=== PATIENT | female | born 1940 | race Caucasian/White ===

== ENCOUNTER 2017-04-04 10:47 | Inpatient (IN) | payer MEDICARE, BC ==
[~2017-04-04] VITALS: Ht 157.6 cm; Wt 91.4 kg
[~2017-04-04 10:47] MED LIST: ADVIL200 MG PO; ARIMIDEX1 MG PO; ASPI325T6 PO; CELEBREX 200MG200 MG PO; CIPRO 500MG TA500 MG PO; FERROUS SU325 MG/TAB PO; FOLIC ACID 40400 MCG PO; LATANOPROST; NORCO 325 MG-51 TAB PO; NORCO 325 MG-7.1 TAB PO; PRINIVIL2.5 MG; PRINZIDE 12.5 M1 TAB PO; SYNTHROID0.05 MG/TA PO; TIMOPTIC 0.25%-5 OP; TUMS500 MG PO; TYLENOL 500MG500 MG PO; ULTRAM 50MG TAB50 MG PO; VITAMIN C500 MG PO; XALATAN EYE DROPS OU
[2017-05-21] VITALS (11 sets, daily range): BP systolic 98–128; BP diastolic 48–69; PULSE 52–72; TEMP 98–98.7
[2017-05-21] MEDS ORDERED: TOPROL XL 50MG50 MG PO (07:41)
[2017-05-22] VITALS (7 sets, daily range): BP systolic 85–127; BP diastolic 42–50; PULSE 68–85; TEMP 97.8–98.5
[2017-05-22] MEDS ORDERED: ASPI325T6 PO (06:15)
[2017-05-22] MEDS ORDERED: ULTRAM 50MG TAB50 MG PO (06:16)
[2017-05-22] MEDS ORDERED: CELEBREX 200MG200 MG PO (06:16)
[2017-05-22 07:17] LABS: HEMOGLOBIN 11.1 g/dl (12.5-16.0)
[2017-05-23 00:55] VITALS: BP 103/52; PULSE 75; TEMP 98.2
[2017-05-23 05:43] VITALS: BP 112/51; PULSE 80; TEMP 99.3
[2017-05-23 06:49] LABS: HEMATOCRIT 33.7 % (37.0-47.0); HEMOGLOBIN 11.1 g/dl (12.5-16.0)
[2017-05-23 07:28] VITALS: BP 118/52; PULSE 81; TEMP 98.2
[2017-05-23 11:44] VITALS: BP 111/50; PULSE 72; TEMP 98.3
[2017-05-23 15:58] VITALS: BP 107/93; PULSE 74; TEMP 98.2
[2017-05-23 19:11] VITALS: BP 131/62; PULSE 84; TEMP 97.7
[2017-05-24 00:14] VITALS: BP 127/59; PULSE 86; TEMP 98.3
[2017-05-24 04:10] VITALS: BP 130/63; PULSE 95; TEMP 98.3
[2017-05-24 07:39] VITALS: BP 131/57; PULSE 89; TEMP 98.1
[2017-05-24 12:55] VITALS: BP 116/76; PULSE 65; TEMP 97
== END 2017-05-24 14:25 | disposition home or self-care (01) | DRG 470 ==
LOC: JCC 05-15 07:30
PROVIDERS: Orthopaedic Surgery; Physician Assistant
PROC: 0SRC0J9 Replacement of Right Knee Joint with Synthetic Substitute, Cemented, Open Approach (ICD-10-PCS; principal; 2017-05-21 09:30)
DX: M17.11 Unilateral primary osteoarthritis, right knee (principal)
CPT/HCPCS: A4315; A9284; C1713; C1776; J1885; J2250; J2704; J3010; J7040; J7120

== ENCOUNTER → 2017-04-22 | Outpatient (REF) ==
[~2017-04-22] MED LIST changes: +TOPROL XL 50MG50 MG PO
== END ==
LOC: ZLAB.WCH 18:00
DX: Z01.89 Encounter for other specified special examinations (principal)

== ENCOUNTER → 2017-05-10 | Outpatient (REF) | LOC: COL.CARD 12:31 | DX: I47.1 Supraventricular tachycardia (principal) ==

== ENCOUNTER → 2017-08-07 | Outpatient (CLI) | payer MEDICARE, BC | LOC: MC.RAD 13:00 | DX: Z12.31 Encounter for screening mammogram for malignant neoplasm of breast (principal); Z85.3 Personal history of malignant neoplasm of breast; Z90.11 Acquired absence of right breast and nipple ==

== ENCOUNTER → 2018-08-08 | Outpatient (CLI) | payer MEDICARE, BC | LOC: MC.RAD 13:00 | DX: Z12.31 Encounter for screening mammogram for malignant neoplasm of breast (principal); Z85.3 Personal history of malignant neoplasm of breast; Z90.11 Acquired absence of right breast and nipple ==

== ENCOUNTER → 2019-08-10 | Outpatient (CLI) | payer MEDICARE, BC | LOC: MC.RAD 09:05 | DX: Z12.31 Encounter for screening mammogram for malignant neoplasm of breast (principal); Z85.3 Personal history of malignant neoplasm of breast; Z98.890 Other specified postprocedural states ==

== ENCOUNTER → 2020-08-11 | Outpatient (CLI) | payer MEDICARE, BC | LOC: MC.RAD 09:56 | DX: Z12.31 Encounter for screening mammogram for malignant neoplasm of breast (principal); Z98.890 Other specified postprocedural states; Z85.3 Personal history of malignant neoplasm of breast ==

== ENCOUNTER → 2021-08-17 | Outpatient (CLI) | payer MEDICARE, BC | LOC: MC.RAD 08-14 10:00 | DX: Z12.31 Encounter for screening mammogram for malignant neoplasm of breast (principal); Z98.890 Other specified postprocedural states; Z85.3 Personal history of malignant neoplasm of breast ==

== ENCOUNTER → 2022-09-20 | Outpatient (CLI) | payer MEDICARE, BC | LOC: MC.RAD 10:09 | DX: Z12.31 Encounter for screening mammogram for malignant neoplasm of breast (principal); Z85.3 Personal history of malignant neoplasm of breast ==